=== PATIENT | male | born 2005 | race American Indian/Alaskan Native ===

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

== ENCOUNTER 2023-03-23 02:57 | Emergency (ER) | payer SELFPAY ==
[~2023-03-23] VITALS: Ht 175.3 cm; Wt 127.0 kg
[2023-03-23] MEDS ORDERED: AMOX500 PO (04:45)
[2023-03-23] MEDS ORDERED: OXYC5 PO (04:45)
[2023-03-23 05:02] VITALS: BP 153/101
== END 2023-03-23 04:47 | disposition home or self-care (01) ==
LOC: ER 02:57
DX: S02.609A Fracture of mandible, unspecified, initial encounter for closed fracture (principal); S00.83XA Contusion of other part of head, initial encounter; S00.33XA Contusion of nose, initial encounter; Y04.0XXA Assault by unarmed brawl or fight, initial encounter; K21.9 Gastro-esophageal reflux disease without esophagitis; Z79.899 Other long term (current) drug therapy
CPT/HCPCS: 70110; 99283-25; A9270

== ENCOUNTER 2023-04-10 12:41 | Day surgery (SDC) | payer OTHER ==
[~2023-04-10] VITALS: Ht 177.8 cm; Wt 111.1 kg
[~2023-04-10 12:41] MED LIST changes: +AMOX500 PO; +OXYC5 PO
--- NOTE | 2023-04-10 16:54 | NUR ---
04/10/23 1654 ArrietaOscar black IV REMOVED INTACT. SITE WNL. PT BECAME VISIBLY AGITATED DURING STAY IN SDU. PT REPEATEDLY STATED THAT HE WANTED A CIGARETTE AND STATED THAT HE WAS GOING TO LEAVE. PT ALSO BECAME FRUSTRATED THAT HE WAS HAVING DIIFCULTY URINATING, DESPITE FEELING LIKE HE NEEDED TO. PT FREQUENTLY STOOD UP AND MOVED HIS ARMS. DURING THIS TIME, 'S BLOOD PRESSURE BECAME ELEVATED. DR. CRANE WAS CONSULTED AND MADE AWARE THAT PT HAD RECIEVED APPROXIMATELY 800ML FLUID SINCE LEAVING OR. DR. CRANE APPROVED D/C. PT VOIDED PRIOR TO D/C. HE WAS INSTRUCTED TO RETURN TO ER IMMEDIATELY IF DIFFICULTY URINATING PERSISTS.
[2023-04-10 16:55] VITALS: BP 161/94
== END 2023-04-10 16:25 | disposition home or self-care (01) ==
LOC: ORSCSDS 12:41
PROVIDERS: Otolaryngology
PROC: 0NSV04Z Reposition Left Mandible with Internal Fixation Device, Open Approach (ICD-10-PCS; principal; 2023-04-10 14:00)
DX: S02.652A Fracture of angle of left mandible, initial encounter for closed fracture (principal); Y09 Assault by unspecified means; F17.210 Nicotine dependence, cigarettes, uncomplicated; Z68.35 Body mass index [BMI] 35.0-35.9, adult
CPT/HCPCS: A9270; C1713; J1100; J2250; J2405; J2704; J3010; J7120

== ENCOUNTER 2023-10-16 10:05 | Emergency (ER) | payer OTHER ==
[~2023-10-16] VITALS: Ht 177.8 cm; Wt 108.9 kg
[2023-10-16 11:03] VITALS: BP 170/103
== END 2023-10-16 11:34 | disposition home or self-care (01) ==
LOC: ER 10:05
DX: S93.401A Sprain of unspecified ligament of right ankle, initial encounter (principal); F10.129 Alcohol abuse with intoxication, unspecified; F90.9 Attention-deficit hyperactivity disorder, unspecified type; K21.9 Gastro-esophageal reflux disease without esophagitis; Y93.01 Activity, walking, marching and hiking; W10.9XXA Fall (on) (from) unspecified stairs and steps, initial encounter
CPT/HCPCS: 29515; 73610; 99283-25; L1906